=== PATIENT | male | born 1995 | race Caucasian/White ===

== ENCOUNTER 2019-06-28 13:07 | Emergency (ER) | payer OTHER ==
[~2019-06-28] VITALS: Ht 165.1 cm; Wt 63.5 kg
[2019-06-28 13:41] VITALS: Ht 165.1 cm; Wt 63.5 kg
[2019-06-28 15:09] VITALS: BP 121/78
== END 2019-06-28 15:09 | disposition home or self-care (01) ==
LOC: ED 13:07
DX: S09.8XXA Other specified injuries of head, initial encounter (principal); W20.8XXA Other cause of strike by thrown, projected or falling object, initial encounter; Y93.89 Activity, other specified; Y92.89 Other specified places as the place of occurrence of the external cause; Y99.8 Other external cause status